=== PATIENT | female | born 1960 | race Caucasian/White ===

== ENCOUNTER 2017-05-08 09:45 | Emergency (ER) | payer OTHER, BC ==
[~2017-05-08] VITALS: Ht 152.4 cm; Wt 86.2 kg
[2017-05-08] MEDS ORDERED: LEVEMIR SUBQ (10:44)
[2017-05-08] MEDS ORDERED: FENOFIBRATE160 MG PO (10:45)
[2017-05-08] MEDS ORDERED: OMEPRAZOLE10 MG PO (10:45)
[2017-05-08] MEDS ORDERED: TRAZODONE 150150 M1 PO (10:45)
[2017-05-08] MEDS ORDERED: LIPITOR10 MG PO (10:45)
[2017-05-08] MEDS ORDERED: HUMALOG100 UNIT/2 SUBQ (10:45)
[2017-05-08] MEDS ORDERED: COUMADIN 1MG TAB1 M1 PO (10:46)
[2017-05-08] MEDS ORDERED: GABAPENTIN 100100 MG PO (10:46)
[2017-05-08] MEDS ORDERED: HYDROCODON-ACE1 EAC7 PO (10:46)
[2017-05-08] MEDS ORDERED: CITALOPRAM HBR40 MG PO ×2 (10:46→10:56)
[2017-05-08] MEDS ORDERED: AMARYL2 MG PO (10:46)
[2017-05-08] MEDS ORDERED: CYMBALTA20 MG PO (10:46)
[2017-05-08 11:05] LABS: PROTIME 57.4 Seconds (9.20-11.50)
[2017-05-08 11:10] LABS: INR 6.1
[2017-05-08 11:38] VITALS: BP 160/71
== END 2017-05-08 11:39 | disposition home or self-care (01) ==
LOC: M.ERS 09:45
PROVIDERS: Nurse Practitioner Family
DX: Z76.0 Encounter for issue of repeat prescription (principal); S80.01XA Contusion of right knee, initial encounter; R79.1 Abnormal coagulation profile; Z79.01 Long term (current) use of anticoagulants; E11.9 Type 2 diabetes mellitus without complications; Z88.5 Allergy status to narcotic agent; Z88.8 Allergy status to other drugs, medicaments and biological substances; Z79.4 Long term (current) use of insulin; W18.39XA Other fall on same level, initial encounter; Y93.89 Activity, other specified; Y99.8 Other external cause status; Y92.218 Other school as the place of occurrence of the external cause